=== PATIENT | female | born 1950 | race Caucasian/White ===

== ENCOUNTER 2019-03-21 19:07 | Emergency (ER) | payer OTHER ==
[~2019-03-21] VITALS: Ht 154.9 cm; Wt 71.7 kg
[2019-03-21 19:11] VITALS: BP 146/97
--- NOTE | 2019-03-21 19:45 | NUR ---
PT AMBULATED TO BED 01.
--- NOTE | 2019-03-21 19:50 | NUR ---
AAO X4 BIB SELF FOR LEFT EAR THROBBING ACHE 8/10X 2 WEEKS. STATES SHE HAS BEEN PUTTING COCONUT OIL IN HER EAR. TENDER TO TOUCH DENIES PAIN AT THIS TIME. PT STATES DIFFICULTY CHEWING ON L SIDE. DENIES N/V/D, FEVER. HOB UP. BED SIDE RAILS UP X1. ON LOW BED POSITION, LOCKED. ER MADE AWARE OF PT STATUS.
[2019-03-21 20:09] VITALS: BP 135/86
--- NOTE | 2019-03-21 20:09 | NUR ---
Patient discharged with v/s stable. Written and verbal after care instructions given and explained. Patient alert, oriented and verbalized understanding of instructions. Ambulatory with steady gait. All questions addressed prior to discharge. ID band removed. Patient advised to follow up with PMD. Rx of ELISSA ELY given. Patient educated on indication of medication including possible reaction and side effects. Opportunity to ask questions provided and answered.
== END 2019-03-21 20:08 | disposition home or self-care (01) ==
LOC: MED 19:07
DX: H92.02 Otalgia, left ear (principal); H93.8X2 Other specified disorders of left ear
CPT/HCPCS: 99283

== ENCOUNTER 2020-03-26 15:59 | Emergency (ER) | payer OTHER ==
[~2020-03-26] VITALS: Ht 154.9 cm; Wt 74.8 kg
[2020-03-26 16:12] VITALS: BP 136/79
--- NOTE | 2020-03-26 16:17 | NUR ---
69 Y/O FEMALE C/O TOOTH ACHE ON LOWER TEETH. PT STATES SHE TOOK 800 MG IBUPROFEN THIS MORNING TO HELP WITH PAIN. SHE WENT TO URGENT CARE 2 WEEKS AGO AND RECEIEVED A SHOT FOR PAIN AND AN IM AMOXICILLIN ADMIN. PT STATES PAIN IS PROVOKED WITH CHEWING AND BITING DOWN. NO INFLAMMATION OR BLEEDING NOTED ON GUM AREA. NO ODOR OR DISACHARGE NOTED AROUND AFFECTED TEETH. RESP EVEN AND UNLABORED. LUNG SOUNDS CLEAR. NO PMH NKA
[2020-03-26] MEDS ORDERED: PENICILLIN G BENZATHINE C-R 1.2 MU/2 ML SYR IM ONE (16:20)
[2020-03-26 16:56] VITALS: BP 136/79
--- NOTE | 2020-03-26 16:57 | NUR ---
Patient discharged with v/s stable. Written and verbal after care instructions given and explained. Patient verbalized understanding. Ambulatory with steady gait. All questions addressed prior to discharge. Advised to follow up with PMD.
== END 2020-03-26 16:57 | disposition home or self-care (01) ==
LOC: MED 15:59
DX: K08.89 Other specified disorders of teeth and supporting structures (principal)
CPT/HCPCS: 96372; 99283; J0558

== ENCOUNTER 2022-02-22 13:45 | Emergency (ER) | payer OTHER ==
[~2022-02-22] VITALS: Ht 149.9 cm; Wt 62.1 kg
[2022-02-22 13:53] VITALS: BP 144/88
[2022-02-22] MEDS ORDERED: NAPR-54 PO (14:42)
[2022-02-22] MEDS ORDERED: AMOX-999 PO (14:42)
--- NOTE | 2022-02-22 15:12 | NUR ---
PT SEEN AND D.C BY K[facility]BER[facility] ULLOA, NO NURSING INTERVENTIONS PROVIDED
--- NOTE | 2022-02-22 15:13 | NUR ---
Patient discharged with v/s stable. Written and verbal after care instructions ABOUT MEDICAL SCREENING EXAM given and explained. Patient alert, oriented and verbalized understanding of instructions. Ambulatory with steady gait. All questions addressed prior to discharge. ID band removed. Patient advised to follow up with PMD. Rx of AUGMENTIN AND NAPROXEN given. Patient educated on indication of medication including possible reaction and side effects. Opportunity to ask questions provided and answered.
== END 2022-02-22 15:13 | disposition home or self-care (01) ==
LOC: MED 13:45
DX: K04.7 Periapical abscess without sinus (principal); Z79.899 Other long term (current) drug therapy
CPT/HCPCS: 99283